=== PATIENT | female | born 1970 | race African-American/Black ===

== ENCOUNTER → 2017-02-28 | Outpatient (CLI) | payer OTHER | LOC: MC.RAD 14:00 | DX: Z12.31 Encounter for screening mammogram for malignant neoplasm of breast (principal) ==

== ENCOUNTER → 2022-01-26 | Outpatient (CLI) | payer OTHER | LOC: MC.RAD 13:01 | DX: Z12.31 Encounter for screening mammogram for malignant neoplasm of breast (principal) ==

== ENCOUNTER 2023-01-26 08:01 | Day surgery (SDC) | payer OTHER ==
[~2023-01-26] VITALS: Ht 165.1 cm; Wt 140.4 kg
[2023-01-26 08:12] VITALS: BP 134/89; PULSE 106; TEMP 97.2
[2023-01-26] MEDS ORDERED: COZAAR 50MG50 MG/TAB PO (08:32)
[2023-01-26] MEDS ORDERED: HCTZ 25MG TAB25 MG PO (08:32)
[2023-01-26] MEDS ORDERED: COMPLETE MULTI1 TAB PO (08:33)
[2023-01-26] MEDS ORDERED: OMEGA-31 SGL PO (08:34)
[2023-01-26] MEDS ORDERED: VITAMIND3 5000 PO (08:34)
[2023-01-26] MEDS ORDERED: VITAMIN C500 MG PO (08:36)
[2023-01-26] MEDS ORDERED: BORAGE OIL PO (08:36)
[2023-01-26] MEDS ORDERED: FISH FLAX PO (08:36)
[2023-01-26] MEDS ORDERED: VITAMIN K0.1 MG PO (08:36)
[2023-01-26] MEDS ORDERED: [UNRECOGNIZED DRUG - OTHER] PO (08:37)
--- NOTE | 2023-01-26 08:40 | NUR ---
The patient ambulated back to [facility] independently using a steady gait and appeared to tolerate the activity well. Vital signs obtained. Consent signed. Assessment completed. Home medicatons reconcilled. 20G IV stated with LR infusing without difficulty. Call light is within reach. Warm blanket provided. Son at bedside. Denies any further needs.
[2023-01-26 10:05] VITALS: BP 109/69; PULSE 99; TEMP 97.3
[2023-01-26 10:20] VITALS: BP 128/81; PULSE 90
[2023-01-26 10:35] VITALS: BP 135/90; PULSE 85
--- NOTE | 2023-01-26 11:05 | NUR ---
1005: PATIENT TO [facility] PER CART FROM ENDO SUITE. PATIENT ALERT AND ORIENTED. AMBULATED FROM CART TO CHAIR X2 ASSIST. VSS. BREATHING EVEN AND UNLABORED. PATIENT DENIES PAIN. REQUESTING MUFFIN AND DIET SPRITE. DENIES ANY NEEDS AT THIS TIME. RESTING IN RECLINER. CALL LIGHT IN REACH. SON AT SIDE. 1015: DR. PRIDE IN TO SPEAK WITH PATIENT AT THIS TIME. 1020: PATIENT REMAINS ALERT AND ORIENTED X4. DENIES PAIN OR DISCOMFORT. TOLERATING MUFFIN AND SPRITE WITH NO C/O NAUSEA. VS REMAIN STABLE. CORA ANY NEEDS AT THIS TIME. RESTING IN RECLINER. CALL LIGHT IN REACH. SON AT SIDE. 1035: PATIENT REMAINS ALERT AND ORIENTED X4. DENIES PAIN OR DISCOMFORT. CONTINUES TO TOLERATE MUFFIN AND SPRITE WITH NO C/O NAUSEA. VS REMAIN STABLE. DENIES ANY NEEDS AT THIS TIME. RESTING IN RECLINER. CALL LIGHT IN REACH. SON AT SIDE. 1040: AMBULATED TO BATHROOM WITH STEADY GAIT. 1045: IV DC'D AT THIS TIME. PATIENT DENIES ASSISTANCE WITH DRESSING. 1050: DISCHARGE EDUCATION AT THIS TIME. PATIENT STATED UNDERSTANDING OF INSTRUCTIONS. DISCHARGE PAPERWORK GIVEN TO PATIENT. 1055: PATIENT OFF UNIT PER WHEELCHAIR AT THIS TIME. PATIENT DISCHARGE TO HOME WITH SON PER PERSONAL VEHICLE.
== END 2023-01-26 10:55 | disposition home or self-care (01) ==
LOC: SDCO 08:01
DX: Z12.11 Encounter for screening for malignant neoplasm of colon (principal); K63.5 Polyp of colon; K64.0 First degree hemorrhoids; K62.89 Other specified diseases of anus and rectum; E66.9 Obesity, unspecified
CPT/HCPCS: J2704; J7120

== ENCOUNTER → 2023-02-01 | Outpatient (CLI) | payer OTHER ==
[~2023-02-01] MED LIST: BORAGE OIL PO; COMPLETE MULTI1 TAB PO; COZAAR 50MG50 MG/TAB PO; FISH FLAX PO; HCTZ 25MG TAB25 MG PO; OMEGA-31 SGL PO; VITAMIN C500 MG PO; VITAMIN K0.1 MG PO; VITAMIND3 5000 PO; [UNRECOGNIZED DRUG - OTHER] PO
== END ==
LOC: MC.RAD 08:11
DX: Z12.31 Encounter for screening mammogram for malignant neoplasm of breast (principal)